=== PATIENT | male | born 1955 | race Hispanic/Latino ===

== ENCOUNTER 2017-08-14 15:36 | Emergency (ER) | payer OTHER ==
[2017-08-14 15:56] VITALS: RESP 18; TEMP 97.6
--- NOTE | 2017-08-14 16:09 | ED PDOC ---
Arrival/HPI - General Chief Complaint: Lower Extremity Problem/Injury Time Seen by Provider: 08/14/17 15:56 Historian: Patient - History of Present Illness Narrative History of Present Illness (Text): 08/14/17 16:05 61yo male with no PMHx who present with complaint of left knee pain that radiates posteriorly to his foot x one week. states he thinks he twisted his knee a week ago. Notes that pain is sharp and only with ambulation. States he was taking Tylenol 500mg with some relieve. Denies SOB, diaphoresis, edema, recent travel, recent surgery, fever, any other complaint. Past Medical History - Provider Review Nursing Documentation Reviewed: Yes - Infectious Disease Hx of Infectious Diseases: None - Psychiatric Hx Substance Use: No Family/Social History - Physician Review Nursing Documentation Reviewed: Yes Family/Social History: Unknown Family HX Smoking Status: Light Smoker < 10 Cigarettes Daily Hx Alcohol Use: Yes (One beer a day) Frequency of alcohol use: Daily Hx Substance Use: No Allergies/Home Meds Allergies/Adverse Reactions: Allergies No Known Allergies Allergy (Verified 08/14/17 15:50) Review of Systems - Physician Review All systems were reviewed & negative as marked: Yes - Review of Systems Constitutional: Normal Eyes: Normal ENT: Normal Respiratory: Normal Cardiovascular: Normal Gastrointestinal: Normal Genitourinary Male: Normal Musculoskeletal: Arthralgias (Left knee/leg pain) Skin: Normal Neurological: Normal Endocrine: Normal Hemo/Lymphatic: Normal Psychiatric: Normal Physical Exam Vital Signs Reviewed: Yes Vital Signs Temp Pulse Resp BP Pulse Ox 08/14/17 18:20 76 18 142/78 99 08/14/17 15:50 97.6 F 78 18 150/100 H 97 Temperature: Afebrile Blood Pressure: Normal Pulse: Regular Respiratory Rate: Normal Appearance: Positive for: Well-Appearing, Non-Toxic, Comfortable Pain Distress: None Mental Status: Positive for: Alert and Oriented X 3 - Systems Exam Head: Present: Atraumatic, Normocephalic Pupils: Present: PERRL Extroacular Muscles: Present: EOMI Conjunctiva: Present: Normal Mouth: Present: Moist Mucous Membranes Neck: Present: Normal Range of Motion Respiratory/Chest: Present: Clear to Auscultation, Good Air Exchange. No: Respiratory Distress, Accessory Muscle Use Cardiovascular: Present: Regular Rate and Rhythm, Normal S1, S2. No: Murmurs Abdomen: Present: Normal Bowel Sounds. No: Tenderness, Distention, Peritoneal Signs Back: Present: Normal Inspection Upper Extremity: Present: Normal Inspection. No: Cyanosis, Edema Lower Extremity: Present: Neurovascularly Intact. No: Edema, Normal ROM ( Limited on flexion secondary to pain), Lucille's Sign, Tenderness, Swelling, Erythema, Temperature Abnormalties Neurological: Present: GCS=15, CN II-XII Intact, Speech Normal Skin: Present: Warm, Dry, Normal Color. No: Rashes Psychiatric: Present: Alert, Oriented x 3, Normal Insight, Normal Concentration Medical Decision Making ED Course and Treatment: 08/14/17 17:21 PT in ED for stated history. His pain was controlled in ED with Toradol. Preliminary Doppler US was negative for DVT Left knee xray - No acute fracture/findings Result was DW the pt. He will be DC home with Naprosyn 500mg rx. Pola wrap applied. Cane given. Referred to ortho. TRT for any new symptoms. - RAD Interpretation Radiology Orders: 08/14/17 16:03 DUPLEX LOWER EXTRM VEIN LEFT [US] Stat 08/14/17 16:04 KNEE WITH PATELLA LEFT 3 VIEW [RAD] Stat - Medication Orders Current Medication Orders: Discontinued Medications Ketorolac Tromethamine (Toradol) 60 mg IM STAT STA Stop: 08/14/17 16:06 Last Admin: 08/14/17 16:23 Dose: 60 mg MAR Pain Assessment Document 08/14/17 16:23 GMD (Rec: 08/14/17 16:23 GMD [id number]) Pain Reassessment Is this a pain reassessment? No IM Administration Charges Document 08/14/17 16:23 GMD (Rec: 08/14/17 16:23 GMD [id number]) Injection Site MAR Injection Site Left Deltoid Charges for Administration # of IM Administrations 1 Disposition/Present on Arrival - Present on Arrival Any Indicators Present on Arrival: No History of DVT/PE: No History of Uncontrolled Diabetes: No Urinary Catheter: No History of Decub. Ulcer: No History Surgical Site Infection Following: None - Disposition Have Diagnosis and Disposition been Completed?: Yes Diagnosis: Knee pain Disposition: HOME/ ROUTINE Disposition Time: 17:25 Patient Plan: Discharge Condition: STABLE Discharge Instructions (ExitCare): Knee Pain (DC) Additional Instructions: Follow up with Orthopedist Return to ED for any new or worsening symptoms Prescriptions: Naproxen [Naprosyn] 500 mg PO BID #20 tab Referrals: PCP,NO [Primary Care Provider] - Follow up with primary Yan Macias MD [Staff Provider] - Follow up with primary Forms: [employer] (Filipino), WORK NOTE
[2017-08-14 18:21] VITALS: BP 142/78; PULSE 76; O2SAT 99
--- NOTE | 2017-08-15 09:17 | RAD ---
PROCEDURE: Left Knee Radiographs. HISTORY: Pain. COMPARISON: None. FINDINGS: BONES: No acute fracture or destructive bony lesion identified. JOINTS: Joint space narrowing at the medial femorotibial compartment is seen as well as of the patellofemoral articulations compatible degenerative joint disease. Cortical sclerosis accompanies these findings at both regions. No subluxation or dislocation JOINT EFFUSION: None. OTHER FINDINGS: None. IMPRESSION: Bicompartmental osteoarthritis. No acute fracture, subluxation or dislocation.
--- NOTE | 2017-08-15 09:48 | US ---
PROCEDURE: Left lower extremity venous US HISTORY: Leg pain and swelling. Evaluate for DVT. PHYSICIAN(S): Tad Montelongo MD. TECHNIQUE: Duplex sonography and color-flow Doppler with graded compression were used to evaluate the deep venous system of the left lower extremity. FINDINGS: The visualized deep venous system of the left lower extremity is sonographically normal and compressible. Normal wave forms and augmentation are seen. There is no sonographic evidence for deep venous thrombosis in the visualized segments of the left lower extremity. IMPRESSION: 1. No sonographic evidence for deep venous thrombosis in the visualized segments of the left lower extremity.
== END 2017-08-14 18:28 | disposition home or self-care (01) ==
LOC: ED 15:36
DX: M25.562 Pain in left knee (principal)
CPT/HCPCS: 73562; 93971; 96372; 99284; J1885